=== PATIENT | female | born 1945 | race Two or more races ===

== ENCOUNTER 2023-07-28 11:11 | Emergency (ER) | payer BC ==
[~2023-07-28] VITALS: Ht 157.5 cm; Wt 77.1 kg
[2023-07-28] MEDS ORDERED: FENOFIBRATE40 MG (12:14)
[2023-07-28 12:53] LABS: ABG PH 7.438 (7.35-7.45); ABG PO2 66.5 mmHg (80-100); SaO2 93.7 %
[2023-07-28 12:54] LABS: BASE EXCESS 1.2 mmol/l; BICARBONATE 25.2 mmol/l (23-25); Tco2 26.3 mmol/l; allen test SATISFACTORY; o2 21 %; puncture site RADIAL RIGHT
[2023-07-28 14:09] LABS: HEMATOCRIT 44.4 % (36.0-45.00); HEMOGLOBIN 14.9 g/dL (12.0-15.00); MEAN CELL VOLUME 86.7 fL (80.00-100.00); MEAN CORPUSCULAR HEMOGLOBIN 29.1 pg (27.00-32.0); MEAN CORPUSCULAR HGB CONC 33.6 g/dl (32.0-36.0); PLATELET COUNT 203 K/uL (150-450); RED BLOOD COUNT 5.12 M/uL (4.00-6.00); RED CELL DISTRIBUTION WIDTH 13.4 % (11.5-14.5)
[2023-07-28 14:42] LABS: BILIRUBIN TOTAL 0.63 mg/dL (0.3-1.2); CALCIUM 9.4 mg/dL (8.5-10.1); CREATININE SERUM 0.58 mg/dL (0.55-1.02); GFR 100.8; GLOBULINA 3.8 G/DL (2.4-3.5); POTASSIUM 3.91 mEq/L (3.5-5.1); TOTAL PROTEIN 7.8 gm/dL (6.4-8.2)
[2023-07-28] MEDS ORDERED: TUSNEL LIQUID178 ML PO (14:48)
[2023-07-28] MEDS ORDERED: XOPENEX CO1.25 MG/0. IH (14:48)
[2023-07-28] MEDS ORDERED: MEDROLPACK PO (14:48)
[2023-07-28] MEDS ORDERED: LEVOFLOXACIN750 MG PO (14:48)
== END 2023-07-28 14:59 | disposition home or self-care (01) ==
LOC: ER 11:12
PROVIDERS: General Practice
DX: J06.9 Acute upper respiratory infection, unspecified (principal); R05.9 Cough, unspecified; Z20.822 Contact with and (suspected) exposure to COVID-19